=== PATIENT | male | born 2000 | race American Indian/Alaskan Native ===

== ENCOUNTER 2020-04-12 10:22 | Emergency (ER) | payer SELFPAY ==
--- NOTE | 2020-04-12 10:49 | Emergency Department Report ---
Blank Doc - Documentation Documentation: 19-year-old Hungarian male that emerge department complaining of right lower qu adrant pain associate with nausea and vomiting and had persistent and progressive worsening since 6 AM this morning. Reports no hematemesis no hematochezia no fevers chills or sweats pain is sharp and worse with palpation and variation with range of motion eating. This initial assessment/diagnostic orders/clinical plan/treatment(s) is/are subject to change based on patients health status, clinical progression and re- assessment by fellow clinical providers in the ED. Further treatment and workup at subsequent clinical providers discretion. Patient/guardian urged not to elope from the ED as their condition may be serious if not clinically assessed and managed. Initial orders include: Plan is to obtain labs, urinalysis as well as a CT scan with contrast of the right lower quadrant rule out appendicitis or other surgical abdomen issues
[2020-04-12 12:34] LABS: Basophils % (Auto) 0.4 % (0.0-1.8); Eosinophils % (Auto) 0.3 % (0.0-4.3); Hematocrit 37.3 % (35.5-45.6); Hemoglobin 12.4 gm/dl (11.8-15.2); Lymphocytes # (Auto) 0.9 K/mm3 (1.2-5.4); Lymphocytes % (Auto) 11.5 % (13.4-35.0); Mean Corpuscular HGB Conc 33 % (32-34); Mean Corpuscular Volume 87 fl (84-94); Monocytes # (Auto) 0.4 K/mm3 (0.0-0.8); Monocytes % (Auto) 4.8 % (0.0-7.3); Platelet Count 173 K/mm3 (140-440); Red Blood Count 4.31 M/mm3 (3.65-5.03); Red Cell Distribution Width 13.8 % (13.2-15.2)
[2020-04-12] MEDS ORDERED: MORPHINE 4 MG/1 ML INJ IV STA (12:42)
[2020-04-12] MEDS ORDERED: ONDANSETRON 4 MG/2 ML INJ IV STA (12:42)
[2020-04-12] MEDS ORDERED: SODIUM CHLORIDE 0.9% 1000 ML 1,000 ML IV ONE (12:42)
[2020-04-12 13:02] LABS: Alanine Aminotransferase 14 units/L (7-56); Albumin 4.5 g/dL (3.9-5); BUN/Creatinine Ratio 13; Blood Urea Nitrogen 13 mg/dL (9-20); Calcium 9.7 mg/dL (8.4-10.2); Hemolysis Index 10
[2020-04-12 13:05] LABS: Bilirubin,Direct < 0.2 mg/dL (0-0.2)
[2020-04-12] MEDS ORDERED: KETOROLAC 30 MG/1 ML INJ IV ONE (13:32)
--- NOTE | 2020-04-12 13:42 | Cat Scan Report ---
CT ABDOMEN AND PELVIS WITH CONTRAST INDICATION / CLINICAL INFORMATION: Right-sided abdominal pain for 8 hours. TECHNIQUE: Axial CT images were obtained through the abdomen and pelvis following the administration of intraven ous contrast. All CT scans at this location are performed using CT dose reduction for ALARA by means of automated exposure control. COMPARISON: None available. FINDINGS: LOWER CHEST: No significant abnormality. LIVER: No significant abnormality. GALLBLADDER: No significant abnormality. PANCREAS: No significant abnormality. SPLEEN: No significant abnormality. ADRENALS: No significant abnormality. KIDNEYS / URETERS: There is a 4 mm calculus within the distal right ureter at the ureterovesicular ju nction. This produces moderate upstream hydroureteronephrosis. A few tiny nonobstructing stones are a lso seen within the right kidney. Left kidney is unremarkable with the exception of tiny renal cysts. URINARY BLADDER: No significant abnormality. REPRODUCTIVE ORGANS: No significant abnormality. STOMACH / SMALL BOWEL: No significant abnormality. COLON: No significant abnormality. APPENDIX: Not definitively visualized. PERITONEUM: No free fluid. No free air. No fluid collection. LYMPH NODES: No significant adenopathy. AORTA / ARTERIES: No significant abnormality. IVC / VEINS: No significant abnormality. SKELETAL SYSTEM: No significant abnormality. ADDITIONAL FINDINGS: None. IMPRESSION: 1. 4 mm obstructing stone within the distal right ureter at the ureterovesicular junction. This produ josé antonio moderate upstream hydroureteronephrosis. 2. The appendix was not definitively visualized on this examination. If there is concern for acute ap pendicitis, a repeat CT scan with oral contrast could be considered. Signer Name: Jose J Garnica MD Signed: 04/12/2020 1:37 PM Workstation Name: [id number]
--- NOTE | 2020-04-12 14:41 | Emergency Department Report ---
ED Abdominal Pain HPI - General Chief Complaint: Abdominal Pain Stated Complaint: VOMIT/RIGHT LOWER QUADRANT PAIN Time Seen by Provider: 04/12/20 10:48 Source: patient Mode of arrival: Ambulatory Limitations: No Limitations - History of Present Illness Initial Comments: Patient is a 19-year-old F Lithuanian male who states that approximately 6 AM he was woke up from his sleep with an intense pain in the right lower quadrant. There was some radiation to the right lower back. He began to vomit and was unable to control his nausea and vomiting. Denies any objective fevers but he did have chills. Denies diarrhea cough cold congestion. Patient is never had such pain in the past. Severity scale (0 -10): 5 - Related Data Previous Rx's Medication Instructions Recorded Last Taken Type Ketorolac [Toradol] 10 mg PO Q6H PRN #12 tablet 04/12/20 Unknown Rx Ondansetron [Zofran Odt] 4 mg PO Q8HR #10 tab.rapdis 04/12/20 Unknown Rx Tamsulosin [Flomax] 0.4 mg PO QDAY #7 cap 04/12/20 Unknown Rx oxyCODONE /ACETAMINOPHEN [Percocet 1 tab PO Q4HR #10 tab 04/12/20 Unknown Rx 5/325] Allergies Allergy/AdvReac Type Severity Reaction Status Date / Time No Known Allergies Allergy Unverified 04/12/20 10:47 ED Review of Systems ROS: Stated complaint: VOMIT/RIGHT LOWER QUADRANT PAIN Other details as noted in HPI Comment: All other systems reviewed and negative ED Past Medical Hx - Past Medical History Previous Medical History?: Yes Hx of Cancer: Yes Additional medical history: Non Hodgkins Lymphoma - Surgical History Past Surgical History?: Yes Additional Surgical History: neck biopsy - Social History Smoking Status: Current Every Day Smoker Substance Use Type: Alcohol - Medications Home Medications: Home Medications Medication Instructions Recorded Confirmed Last Taken Type Ketorolac [Toradol] 10 mg PO Q6H PRN #12 tablet 04/12/20 Unknown Rx Ondansetron [Zofran Odt] 4 mg PO Q8HR #10 tab.rapdis 04/12/20 Unknown Rx Tamsulosin [Flomax] 0.4 mg PO QDAY #7 cap 04/12/20 Unknown Rx oxyCODONE /ACETAMINOPHEN [Percocet 1 tab PO Q4HR #10 tab 04/12/20 Unknown Rx 5/325] ED Physical Exam - General Limitations: No Limitations General appearance: alert, in distress - Head Head exam: Present: atraumatic, normocephalic - Eye Eye exam: Present: normal appearance, PERRL, EOMI - ENT ENT exam: Present: mucous membranes moist - Neck Neck exam: Present: normal inspection - Respiratory Respiratory exam: Present: normal lung sounds bilaterally. Absent: respiratory distress, wheezes, rales, rhonchi - Cardiovascular Cardiovascular Exam: Present: regular rate, normal rhythm, normal heart sounds. Absent: systolic murmur, diastolic murmur, rubs, gallop - GI/Abdominal GI/Abdominal exam: Present: soft, tenderness (Right lower quadrant and right flank), normal bowel sounds. Absent: distended, guarding, rebound, rigid - Rectal Rectal exam: Present: deferred - Extremities Exam Extremities exam: Present: normal inspection - Back Exam Back exam: Present: normal inspection, CVA tenderness (R) - Neurological Exam Neurological exam: Present: alert, oriented X3 - Psychiatric Psychiatric exam: Present: normal affect, normal mood - Skin Skin exam: Present: warm, dry, intact, normal color. Absent: rash ED Course Vital Signs 04/12/20 04/12/20 10:48 13:53 Temperature 97.8 F 98.4 F Pulse Rate 76 62 Respiratory 19 16 Rate Blood Pressure 127/61 Blood Pressure 113/47 [Right] O2 Sat by Pulse 100 100 Oximetry ED Medical Decision Making - Lab Data Result diagrams: 04/12/20 11:46 04/12/20 11:46 - Radiology Data [facility] [address] [place] [address] Cat Scan Report Signed Patient: VINCENZO JOYNER MR#: [id number] : 2000 Acct:[id number] Age/Sex: 19 / M ADM Date: 04/12/20 Loc: ED Attending Dr: Ordering Physician: CHIO ESQUIVEL Date of Service: 04/12/20 Procedure(s): CT abdomen pelvis w con Accession Number(s): [id number] cc: CHIO ESQUIVEL CT ABDOMEN AND PELVIS WITH CONTRAST INDICATION / CLINICAL INFORMATION: Right-sided abdominal pain for 8 hours. TECHNIQUE: Axial CT images were obtained through the abdomen and pelvis following the administration of intravenous contrast. All CT scans at this location are performed using CT dose reduction for ALARA by means of automated exposure control. COMPARISON: None available. FINDINGS: LOWER CHEST: No significant abnormality. LIVER: No significant abnormality. GALLBLADDER: No significant abnormality. PANCREAS: No significant abnormality. SPLEEN: No significant abnormality. ADRENALS: No significant abnormality. KIDNEYS / URETERS: There is a 4 mm calculus within the distal right ureter at the ureterovesicular junction. This produces moderate upstream hydroureteronephrosis. A few tiny nonobstructing stones are also seen within the right kidney. Left kidney is unremarkable with the exception of tiny renal cysts. URINARY BLADDER: No significant abnormality. REPRODUCTIVE ORGANS: No significant abnormality. STOMACH / SMALL BOWEL: No significant abnormality. COLON: No significant abnormality. APPENDIX: Not definitively visualized. PERITONEUM: No free fluid. No free air. No fluid collection. LYMPH NODES: No significant adenopathy. AORTA / ARTERIES: No significant abnormality. IVC / VEINS: No significant abnormality. SKELETAL SYSTEM: No significant abnormality. ADDITIONAL FINDINGS: None. IMPRESSION: 1. 4 mm obstructing stone within the distal right ureter at the ureterovesicular junction. This produces moderate upstream hydroureteronephrosis. 2. The appendix was not definitively visualized on this examination. If there is concern for acute appendicitis, a repeat CT scan with oral contrast could be considered. Signer Name: Jose J Garnica MD Signed: 04/12/2020 1:37 PM Workstation Name: [id number] - Medical Decision Making Patient's CT is consistent with a 4 mm obstructing kidney stone. Is very close to passing into the bladder. Patient's pain was controlled with morphine Toradol and Zofran. Be sent home with a few Percocet and Zofran and Flomax. Patient to be discharged home with follow-up with urology. With further qu estioning patient states he does have a family history of kidney stones. Critical care attestation.: If time is entered above; I have spent that time in minutes in the direct care of this critically ill patient, excluding procedure time. ED Disposition Clinical Impression: Hydronephrosis Qualifiers: Hydronephrosis type: with ureteral calculous obstruction Qualified Code(s): N13.2 - Hydronephrosis with renal and ureteral calculous obstruction Disposition: TO HOME OR SELFCARE Is pt being admited?: No Does the pt Need Aspirin: No Condition: Stable Instructions: Kidney Stones, [id number]-jn-Ulex, Hydronephrosis Prescriptions: Tamsulosin [Flomax] 0.4 mg PO QDAY #7 cap oxyCODONE /ACETAMINOPHEN [Percocet 5/325] 1 tab PO Q4HR #10 tab Ketorolac [Toradol] 10 mg PO Q6H PRN #12 tablet PRN Reason: Pain Ondansetron [Zofran Odt] 4 mg PO Q8HR #10 tab.yuan Referrals: LAKISHA ALBRIGHT MD [Staff Physician] - 3-5 Days Time of Disposition: 14:49
[2020-04-12 15:10] VITALS: BP 115/48
[2020-04-12 15:17] LABS: Bilirubin,Urine NEG (Negative); Blood,Urine MOD (Negative); Color,Urine Straw (Yellow); Mucus,Urine FEW /HPF; Protein,Urine <15 mg/dL mg/dL (Negative); Urobilinogen,Urine < 2.0 mg/dL (<2.0)
== END 2020-04-12 15:11 | disposition home or self-care (01) ==
LOC: ED 10:22
DX: N13.30 Unspecified hydronephrosis (principal); F17.200 Nicotine dependence, unspecified, uncomplicated; Z98.890 Other specified postprocedural states; Z79.899 Other long term (current) drug therapy
CPT/HCPCS: 36415; 74177; 80048; 80076; 81001; 83690; 85025; 96361; 96374; 96375; 99284; J1885; J2270; J2405; J7030; Q9967